=== PATIENT | female | born 1945 | race Caucasian/White ===

== ENCOUNTER 2016-06-24 09:38 | Inpatient (IN) | payer MEDICARE, OTHER ==
[2016-05-26 10:20] VITALS: BMI 26.0
--- NOTE | 2016-05-26 11:07 | PAT Medication Instructions ---
Service Date May 26, 2016. Current Home Medication List Albuterol (Ventolin Hfa), 2 PUFFS INH Q4H PRN for ASTHMA? Ascorbic Acid (Vitamin C), 1 TAB PO BID Calcium Citrate-Vitamin D (Calcium Citrate + D), 1 TAB PO QDL Coenzyme Q10 (Ubidecarenone) (Coq10), 1 TAB PO QAM Esomeprazole Magnesium (Nexium), 40 MG PO DAILY PRN for ACID REFLUX Ezetimibe (Zetia), 10 MG PO QDD Fish Oil (Biggers-3), 1,400 MG PO BID Magnesium Oxide (Magnesium), 250 MG PO BID Metoprolol Succinate (Metoprolol Succinate ER), 1 TAB PO QDD Multivitamin (Multivitamin), 1 TAB PO QDD Resveratrol-Quercetin (Resveratrol Plus), 1 TAB PO QAM Saccharomyces Boulardii (Probiotic), 2 CAP PO QPM Verapamil Sust Rel (Calan Sr Ext Rel), 360 MG PO QAM Medication Instructions For Your Scheduled Surgery - Hold the following medications 10 days prior to surgery: Resveratrol-Quercetin (Resveratrol Plus), 1 TAB PO QAM Fish Oil (Biggers-3), 1,400 MG PO BID Coenzyme Q10 (Ubidecarenone) (Coq10), 1 TAB PO QAM - Hold the following medications the morning of surgery: Multivitamin (Multivitamin), 1 TAB PO QDD Magnesium Oxide (Magnesium), 250 MG PO BID Calcium Citrate-Vitamin D (Calcium Citrate + D), 1 TAB PO QDL Ascorbic Acid (Vitamin C), 1 TAB PO BID - Take the following medications the morning of surgery with a sip of water: Verapamil Sust Rel (Calan Sr Ext Rel), 360 MG PO QAM Metoprolol Succinate (Metoprolol Succinate ER), 1 TAB PO QDD Ezetimibe (Zetia), 10 MG PO QDD Esomeprazole Magnesium (Nexium), 40 MG PO DAILY PRN for ACID REFLUX Albuterol (Ventolin Hfa), 2 PUFFS INH Q4H PRN (bring with you to hospital on day of surgery) - Take the following medications as scheduled the night before surgery: Saccharomyces Boulardii (Probiotic), 2 CAP PO QPM Magnesium Oxide (Magnesium), 250 MG PO BID Ascorbic Acid (Vitamin C), 1 TAB PO BID Albuterol (Ventolin Hfa), 2 PUFFS INH Q4H PRN If you have any questions please call us at [phone] or [phone] ( Veronica) or [phone]
[2016-05-26 11:59] LABS: BASO % 0.3 %; BASO ABS # 0.02 K/uL (0-0.2); COMPLETE YES; EOS % 1.1 %; HEMATOCRIT 43.6 % (37-47); IG% 0.4 %; LYMPH % 20.8 %; LYMPH ABS # 1.55 K/uL (1.2-3.4); MEAN CELL VOLUME 92.4 fL (80-100); MEAN CORPUSCULAR HEMOGLOBIN 31.8 pg (25-34); MEAN CORPUSCULAR HGB CONC 34.4 g/dl (32-36); MEAN PLATELET VOLUME 9.6 fL (7.4-10.4); MONO % 6.7 %; NEUT % 70.7 %; PLATELET COUNT 474 K/uL (130-400); RED BLOOD COUNT 4.72 M/uL (4.2-5.4); WHITE BLOOD COUNT 7.44 K/uL (4.8-10.8)
[2016-05-26 12:04] LABS: URINE APPEARANCE CLEAR (CLEAR); URINE BILIRUBIN NEG (NEG); URINE COLOR YELLOW; URINE NITRITE NEG (NEG); URINE PH 7.5 (4.5-7.5); URINE SPECIFIC GRAVITY 1.005 (1.000-1.030); UROBILINOGEN NEG (NEG)
[2016-05-26 12:09] LABS: PARTIAL THROMBOPLASTIN RATIO 1.1; PROTHROMBIN TIME (PATIENT) 10.7 SECONDS (9.0-12.0)
[2016-05-26 12:10] LABS: MANUAL MICROSCOPIC REQUIRED? NO; REVIEW REQ? NO
--- NOTE | 2016-05-26 12:10 | DIAGNOSTIC IMAGING REPORT ---
CHEST PREADMISSION(PA/LAT) CLINICAL HISTORY: PAT preoperative evaluation COMPARISON STUDY: No previous studies for comparison. FINDINGS: Mild emphysematous change. Thoracic scoliosis. Lungs are clear. Diaphragms smooth. IMPRESSION: No acute process. Mild emphysematous change. Electronically signed by: Lei Park M.D. 05/26/2016 12:08 PM Dictated Date/Time: 05/26/2016 12:08 PM
[2016-05-26 12:17] LABS: ESTIMATED AVERAGE GLUCOSE 114 mg/dl; HA1C FLAG Normal (Normal)
[2016-05-26 12:52] LABS: BUN/CREATININE RATIO 14.2 (10-20); CALCIUM 9.2 mg/dl (8.5-10.1); CREATININE 0.77 mg/dl (0.60-1.20); POTASSIUM 4.2 mmol/L (3.5-5.1)
--- NOTE | 2016-05-26 15:44 | HISTORY & PHYSICAL EXAMINATION ---
DATE OF ADMISSION: 06/24/2016 PROCEDURE: Left knee replacement. HISTORY OF PRESENT ILLNESS: This is a pleasant 71-year-old female who presents for preop evaluation prior to left knee replacement. She states she has had pain in this knee for many years now, which has gradually worsened. It has now gotten to the point where it is affecting her daily activities including walking, standing, going up and down steps. She has tried physical therapy and home exercise program, viscosupplementation, cortisone injection, anti-inflammatories with no relief. She had a previous left knee arthroscopy in 2003. At this point in time, has failed conservative measures and would like to proceed with left knee replacement. PAST MEDICAL HISTORY: 1. Hypertension. 2. High cholesterol. 3. Asthma. 4. Positives MRSA nasal swab after her neck surgery in 2007. 5. GERD. ALLERGIES: NO KNOWN DRUG ALLERGIES. SHE HAS SENSITIVITY TO STATINS WHICH CAUSES MUSCLE PAIN WELL CHLORTHALIDONE CAUSES WEAKNESS. CURRENT MEDICATIONS: 1. Nexium. 2. Zetia 10 mg daily. 3. Verapamil 360 mg daily. 4. Fish oil. 5. Calcium. 6. Multivitamin. 7. Magnesium. 8. Valsartan 80 mg daily. 9. Coenzyme Q10. 10. Vitamin C. 11. Probiotic. 12. Ventolin inhaler. PAST SURGICAL HISTORY: 1. Hysterectomy. 2. Bilateral axillary lipoma removal. 4. Appendectomy. 5. Bladder surgery. FAMILY HISTORY: Noncontributory. SOCIAL HISTORY: She denies a history of smoking or tobacco use. No alcohol consumption. She is retired and lives in a 1-story home with her . REVIEW OF SYSTEMS: Otherwise negative. Please see HPI for pertinent positives. PHYSICAL EXAMINATION: GENERAL: Nacho 71-year-old female in no acute distress, alert and oriented x3. She is 5 feet 4 inches, weighs 157 pounds. VITAL SIGNS: Blood pressure is 162/86, pulse 80, O2 sats 98%. HEENT: Normocephalic, atraumatic. CARDIAC: Regular rate and rhythm. Grade 1 systolic ejection murmur noted. Resting pulse 80 beats per minute. LUNGS: Clear to auscultation without rales or wheeze bilaterally. ABDOMEN: Soft, nontender. Bowel sounds present. EXTREMITIES: Left lower extremity is neurovascularly intact. Calves are soft and nontender. DP pulse +2. Demonstrates good quad tone. Straight leg raise without lag. No erythema or warmth, mild effusion. Positive crepitation with motion, range of motion is 0/5/115. Overall has valgus alignment. IMAGING: Reviewed of the left knee shows findings consistent with degenerative joint disease including complete loss of joint space of the lateral compartment as well as patellofemoral joint with valgus alignment, peripheral osteophytes and subchondral sclerosis. IMPRESSION: 1. Left knee degenerative joint disease. 2. Past medical history as outlined above. PLAN: Further care discussed with patient. At this point in time, has failed conservative measures and would like to proceed with a left knee replacement. We will place on aspirin 81 mg p.o. b.i.d. for a month postop. Otherwise, she has no other questions or concerns. JO ANN
[2016-06-24] VITALS (7 sets, daily range): BP systolic 121–164; BP diastolic 60–74; PULSE 54–71; TEMP 36.3–37.1; O2SAT 96–100; Ht 162.6 cm; Wt 69.1 kg
[~2016-06-24] VITALS: Ht 162.6 cm; Wt 69.1 kg
[2016-06-24] MEDS: TRANEXAMIC ACID INJ 1,000 MG in SODIUM CHLORIDE 0.9% 100ML 100 ML IV SCH ×2 (06:00→06:30)
--- NOTE | 2016-06-24 09:21 | History & Physical Bridge Note ---
H&P Re-Evaluation Bridge Note: I have examined the patient, reviewed the History & Physical and in the interval since the performance of the History & Physical I have noted the following changes of clinical significance: No changes noted
[~2016-06-24 09:38] MED LIST: ACETAMINOPHEN 500 MG TAB PO SCH; ASCA500 PO; BUPIVACAINE 0.25% 30 ML VIAL ONE; BUPIVACAINE 0.5 % 5 MG/1 ML PF 10ML VIAL ONE; CALC-279 PO; CEFAZOLIN 1000MG/55 ML D5W 55 ML IV SCH; COEN1CAP7 PO; CeleBREX 200 MG CAP PO SCH; DEXAMETHASONE 4 MG TAB PO SCH; EZET10TA63 PO; FAMOTIDINE 20 MG TAB PO SCH; GABAPENTIN 300 MG CAP PO SCH; LACTATED RINGER'S 1000ML 1,000 ML IV SCH; LACTATED RINGER'S 1000ML IV SCH; LACTATED RINGER'S 500 ML IV SCH; MAGN1CAP4 PO; METOCLOPRAMIDE HCL 10 MG TAB PO SCH; MULT-506 PO; NXM/40 PO; OMEG10007 PO; PRVHFAIN INH; RESV1TAB PO; ROPIVACAINE 5MG/ML 30 ML 150 MG, BUPIVACAINE/EPINEPHR 0.5% MPF 30 ML, KETOROLAC TROMETH... INFIL SCH; SACC250C11 PO; TPRSR/25 PO; VERA240T20 PO
[2016-06-24] MEDS ORDERED: PROPOFOL IV EMULSION 10 MG/ML 20 ML VIAL IV ONE (10:50)
[2016-06-24] MEDS ORDERED: LIDOCAINE HCL 2% 2 ML VIAL (20MG/ML) ONE (10:50)
[2016-06-24] MEDS ORDERED: ONDANSETRON INJ 2 MG/ML 2 ML VIAL ONE (10:50)
[2016-06-24] MEDS ORDERED: DEXAMETHASONE SOD INJ 4 MG/ML VIAL ONE (10:50)
[2016-06-24] MEDS ORDERED: FENTANYL CITRATE INJ 50 MCG/1 ML 2 ML VIAL ONE (10:51)
[2016-06-24] MEDS ORDERED: MIDAZOLAM HCL 1 MG/ML 2ML VIAL ONE ×2 (10:51)
[2016-06-24] MEDS ORDERED: LACTATED RINGER'S 1000ML 1,000 ML IV PRN (11:18)
[2016-06-24] MEDS ORDERED: ONDANSETRON INJ 2 MG/ML 2 ML VIAL IV PRN ×2 (11:30→14:45)
[2016-06-24] MEDS ORDERED: FENTANYL CITRATE INJ 50 MCG/1 ML 2 ML VIAL IV PRN (11:30)
[2016-06-24] MEDS ORDERED: ORTHO JOINT ANESTHETIC ONE (11:34)
[2016-06-24] MEDS ORDERED: POVIDONE-IODINE OP SOLN 30 ML BTL ONE (11:34)
[2016-06-24] MEDS ORDERED: BACITRACIN 50000 UNIT VIAL ONE (11:35)
--- NOTE | 2016-06-24 14:05 | [facility] Post Operative Brief Note ---
Immediate Operative Summary Operative Date Jun 24, 2016. Pre-Operative Diagnosis Left knee degenerative joint disease Post-Operative Diagnosis Left knee degenerative joint disease Procedure(s) Performed Left Total Knee Arthroplasty Surgeon Tod Investigations Director Surgeon(s) Lei Brooks PA-C Estimated Blood Loss 5cc Findings severe djd with valgus knee Specimens A: left knee bone and tissue Complication(s) None Disposition Recovery Room / PACU
--- NOTE | 2016-06-24 14:15 | OPERATIVE REPORT ---
DATE OF OPERATION: 06/24/2016 PREOPERATIVE DIAGNOSIS: Severe endstage degenerative joint disease with valgus alignment left knee. POSTOPERATIVE DIAGNOSIS: Same. PROCEDURE: Left total knee arthroplasty utilizing Long \T\ Nephew Journey II patient matched total knee arthroplasty size 6 femur, 4 tibia, 10 poly constrained, 32 patella. SURGEON: Dr. Baron. LIQUIFIED NATURAL GAS TECHNICIAN: Lei Brooks PA-C who was necessary for prepping, draping, retraction, wound closure of deep fascial, subcutaneous and skin and was necessary for the case. ESTIMATED BLOOD LOSS: 5 mL. COMPLICATIONS: None. TOURNIQUET TIME: 45 minutes. HISTORY OF PRESENT ILLNESS: The patient presents as a very pleasant 71-year-old white female with a 15 degree valgus knee with severe endstage DJD about her left knee. She presents for left total knee arthroplasty after failing attempts at conservative management including physical therapy, anti-inflammatories, relative rest, activity modification. She presents for total knee arthroplasty. OPERATION AND FINDINGS: PROCEDURE: The patient was properly prepped and draped in supine position for total knee arthroplasty after identifying the appropriate surgical site. An anterior midline incision was made through the subcutaneous tissues down to the region of the extensor mechanism. A medial parapatellar incision was subsequently made. Meticulous hemostasis was obtained and performed at all times. The patella having been subluxed lateralward, medial and lateral meniscal remnants were excised. The patellar cut was then initially made and was sized to the appropriate size. After subluxing the tibia forward the appropriate meniscal fragments having been removed the distal femur was then cut first utilizing a Long \T\ Nephew block. The distal femoral cuts and chamfer cuts were all made under direct visualization and the proximal tibial osteotomy cut was also made utilizing Long \T\ Nephew blocks and checked with an extramedullary guide. The appropriate trial components on the femur and tibia were placed. Appropriate trial spacers were used to check flexion and extension gaps. With flexion and extension gaps being equal, the components were then subsequently after thorough irrigation and debridement lavage components were then subsequently cemented in the following order: femur, tibia and patella. Exparel was used for intraoperative anesthesia, the medial parapatellar incision was closed utilizing #1 Vicryl, subQ was closed with 2-0 Vicryl, skin was closed with skin clips. A sterile compression dressing was placed. The patient tolerated the procedure well. The patient was taken to recovery room in stable condition. Due to the complex nature of the procedure, the entire surgery was performed with the operational assistance of Lei Brooks PA-C. The certified pharmacist assistant, under direct supervision, was involved in the actual performance of all aspects of the surgical procedure including hemostasis, tissue retraction and incision, instrument management, patient positioning, and wound closure. I attest to the content of the Intraoperative Record and any orders documented therein. Any exceptio ns are noted below.
[2016-06-24] MEDS ORDERED: MAGNESIUM HYDROXIDE SUSP 30 ML UDC PO PRN (14:45)
[2016-06-24] MEDS ORDERED: SOD PHOSPHATE/SOD BIPHOSPHATE ENEMA 132 ML BTL PR PRN (14:45)
[2016-06-24] MEDS ORDERED: ALBUTEROL HFA 8 GM INHALER INH PRN (14:45)
[2016-06-24] MEDS ORDERED: OXYCODONE HCL IR 5 MG TAB (IMMEDIATE RELEASE) PO PRN (14:45)
[2016-06-24] MEDS ORDERED: ALUMINUM/MAGNESIUM/SIMETH (MAALOX MAX) 30 ML UDC PO PRN (14:45)
[2016-06-24] MEDS ORDERED: BISACODYL 10 MG SUPP PR PRN (14:45)
[2016-06-24] MEDS ORDERED: ZOLPIDEM TARTRATE 5 MG TAB PO PRN (14:45)
[2016-06-24] MEDS ORDERED: MoRPHine SULFATE 2 MG/ML CARP IV PRN (14:45)
[2016-06-24] MEDS ORDERED: KETOROLAC TROMETHAMINE 15 MG/ML VIAL IV. PRN (14:45)
--- NOTE | 2016-06-24 15:17 | DIAGNOSTIC IMAGING REPORT ---
LEFT KNEE 2 VIEWS History: Left total knee arthroplasty. Degenerative arthritis. Postop. FINDINGS: The patient is status post a left total knee arthroplasty. The hardware is intact. No fracture or dislocation. Surgical drains are in place. IMPRESSION: Left total knee arthroplasty. No evidence for hardware complication. Electronically signed by: Fredy Parker M.D. 06/24/2016 3:15 PM Dictated Date/Time: 06/24/2016 3:15 PM
--- NOTE | 2016-06-24 15:17 | Anesthesiology Progress Note ---
Anesthesia Post Op Note Date & Time Jun 24, 2016 at 15:16 Vital Signs Pain Intensity: 0 Vital Signs Past 12 Hours Date Time Temp Pulse Resp B/P Pulse Ox O2 Delivery O2 Flow Rate FiO2 06/24/16 15:00 65 17 133/58 98 Nasal Cannula 2 06/24/16 14:50 82 16 153/70 98 Nasal Cannula 2 06/24/16 14:41 36.5 75 16 146/62 100 Mask 10 06/24/16 10:15 36.6 71 18 164/74 97 Room Air Notes Mental Status: alert / awake / arousable, participated in evaluation Pt Amnestic to Procedure: No (recall as expected) Nausea / Vomiting: adequately controlled Pain: adequately controlled Airway Patency, RR, SpO2: stable & adequate BP & HR: stable & adequate Hydration State: stable & adequate Neuraxial Anesthesia: was administered, sensory block is resolving Anesthetic Complications: no major complications apparent Pt doing well.
[2016-06-24] MEDS ORDERED: MoRPHine SULFATE 4 MG/ML 1 ML CARP\\VIAL IV PRN (15:30)
[2016-06-24] MEDS ORDERED: MoRPHine SULFATE 10 MG/ML CARP/VIAL IV PRN (15:30)
[2016-06-24] MEDS: D5W AND 1/2NSS + 20MEQ KCL 1,000 ML IV SCH (16:34)
[2016-06-24] MEDS: METOPROLOL SUCC 25MG EXT REL TAB PO SCH (18:30)
[2016-06-24] MEDS: EZETIMIBE 10MG TAB PO SCH (18:38)
[2016-06-24] MEDS: CEFAZOLIN IV 1,000 MG in DEXTROSE 5% 50ML 50 ML IV SCH (20:10)
[2016-06-24] MEDS: OXYCODONE HCL 10 MG TABCR (OXYCONTIN) PO SCH (21:00)
[2016-06-24] MEDS: ASPIRIN 81 MG ECTAB PO SCH (21:35)
[2016-06-24] MEDS: DOCUSATE SODIUM 100 MG CAP PO SCH (21:36)
[2016-06-24] MEDS: ASCORBIC ACID 500 MG TAB PO SCH (21:39)
[2016-06-24] MEDS: SENNA 8.6 MG TAB PO SCH (21:39)
[2016-06-24] MEDS: SACCHAROMYCES BOUL (FLORASTOR) 250 MG CAP PO SCH (21:39)
[2016-06-24] MEDS: MAGNESIUM OXIDE 400 MG TAB PO SCH (21:40)
[2016-06-24] MEDS: ACETAMINOPHEN 500 MG TAB PO SCH (21:43)
[2016-06-24] MEDS: CeleBREX 200 MG CAP PO SCH (22:21)
[2016-06-25] MEDS: D5W AND 1/2NSS + 20MEQ KCL 1,000 ML IV SCH ×2 (02:27→13:08)
[2016-06-25 03:56] VITALS: BP 136/64; PULSE 52; TEMP 36.5; O2SAT 98
[2016-06-25] MEDS: CEFAZOLIN IV 1,000 MG in DEXTROSE 5% 50ML 50 ML IV SCH (03:59)
[2016-06-25] MEDS: ACETAMINOPHEN 500 MG TAB PO SCH ×3 (06:14→21:42)
[2016-06-25 06:23] LABS: HEMATOCRIT 37.5 % (37-47); MEAN CELL VOLUME 91.9 fL (80-100); MEAN CORPUSCULAR HEMOGLOBIN 30.6 pg (25-34); MEAN CORPUSCULAR HGB CONC 33.3 g/dl (32-36); PLATELET COUNT 388 K/uL (130-400); RED BLOOD COUNT 4.08 M/uL (4.2-5.4); WHITE BLOOD COUNT 19.46 K/uL (4.8-10.8)
[2016-06-25 06:38] LABS: PROTHROMBIN TIME (PATIENT) 10.8 SECONDS (9.0-12.0)
[2016-06-25 07:20] VITALS: BP 146/61; PULSE 58; TEMP 36.6; O2SAT 97
[2016-06-25 07:31] LABS: BUN/CREATININE RATIO 13.4 (10-20); CALCIUM 8.3 mg/dl (8.5-10.1); CREATININE 0.77 mg/dl (0.60-1.20)
[2016-06-25] MEDS: PANTOprazole SOD 40 MG TAB PO SCH (07:37)
[2016-06-25] MEDS: VERAPAMIL HCL 240 MG TABCR PO SCH (07:37)
[2016-06-25] MEDS: OXYCODONE HCL 10 MG TABCR (OXYCONTIN) PO SCH ×2 (08:42→21:00)
[2016-06-25] MEDS: CeleBREX 200 MG CAP PO SCH ×2 (08:47→21:40)
[2016-06-25] MEDS: ASPIRIN 81 MG ECTAB PO SCH ×2 (08:47→21:38)
[2016-06-25] MEDS: DOCUSATE SODIUM 100 MG CAP PO SCH ×2 (08:47→21:00)
[2016-06-25] MEDS: MULTIVITAMIN TAB PO SCH (08:48)
[2016-06-25] MEDS: MAGNESIUM OXIDE 400 MG TAB PO SCH ×2 (08:48→21:40)
[2016-06-25] MEDS: ASCORBIC ACID 500 MG TAB PO SCH ×2 (08:48→21:41)
[2016-06-25] MEDS ORDERED: QUERCETIN PO SCH (09:00)
[2016-06-25] MEDS ORDERED: RESVERATROL PO SCH (09:00)
--- NOTE | 2016-06-25 10:36 | Orthopedic Progress Note ---
Orthopedic Progress Note Date of Service Jun 25, 2016. Subjective Post OP Day: 1 Reports: feeling well, Denies: SOB, calf pain, chest pain, light headedness, nausea / vomiting Additional Notes: Knee feels tight this AM with some mild pain in the popliteal fossa area. No other complaints. Objective calves soft nontender, N/V intact, dressing C/D/I, A&O x3, toes mobile Date Time Temp Pulse Resp B/P Pulse Ox O2 Delivery O2 Flow Rate FiO2 06/25/16 07:35 Room Air 06/25/16 07:20 36.6 58 17 146/61 97 Room Air 06/25/16 03:56 36.5 52 16 136/64 98 Room Air 06/25/16 00:08 Room Air 06/24/16 23:16 36.6 56 16 142/65 99 Room Air 06/24/16 18:49 36.5 58 16 121/60 100 Nasal Cannula 2.0 06/24/16 17:42 37.1 60 16 135/67 100 Nasal Cannula 2.0 06/24/16 16:42 36.3 54 16 126/67 100 Nasal Cannula 2.0 06/24/16 16:10 36.4 57 16 137/68 100 Nasal Cannula 2.0 06/24/16 15:40 96 Nasal Cannula 2.0 06/24/16 15:40 Nasal Cannula 2.0 06/24/16 15:40 36.3 56 16 124/66 96 Nasal Cannula 2.0 06/24/16 15:20 58 16 121/48 98 Nasal Cannula 2 06/24/16 15:10 36.3 60 14 120/58 98 Nasal Cannula 2 06/24/16 15:00 65 17 133/58 98 Nasal Cannula 2 06/24/16 14:50 82 16 153/70 98 Nasal Cannula 2 06/24/16 14:41 36.5 75 16 146/62 100 Mask 10 Laboratory Results 24 Hours: Test 06/25/16 05:58 Hematocrit 37.5 % Hemoglobin 12.5 g/dL Prothromb Time International Ratio 1.0 Prothrombin Time 10.8 SECONDS Assessment & Plan Assessment: POD 1 s/p Left TKA Plan: PT/OT Planning for Home with OPPT Inhouse Planning Pain Management: Celebrex, Toradol, Oxycontin, Morphine, PO Tylenol, Oxy IR DVT Prophylaxis: TEDs, SCDs, ASA Discharge Planning Discharge Planning: home with oppt Pain Management: Celebrex, Oxycontin, Oxy IR DVT Prophylaxis: TEDs, ASA Therapy: Physical Therapy
[2016-06-25 11:22] VITALS: BP 122/69; PULSE 67; TEMP 36.5; O2SAT 99
[2016-06-25] MEDS: CALCIUM 600MG + VIT D 400 IU TAB PO SCH (13:08)
--- NOTE | 2016-06-25 14:28 | Discharge Instructions ---
Discharge Instructions Date of Service Jun 25, 2016. Admission Reason for Admission: Left Knee Osteoarthritis Discharge Discharge Diagnosis / Problem: left total knee replacement Discharge Goals Goal(s): Decrease discomfort, Improve function, Increase independence Activity Recommendations Activity Limitations: as noted below Weightbearing Status: Left weightbearing (as tolerated) . Instructions / Follow-Up Instructions / Follow-Up ACTIVITY RECOMMENDATIONS: SELF CARE INSTRUCTIONS AFTER TOTAL KNEE REPLACEMENT A. You may need to continue a physical therapy program after discharge from the hospital. There are several options available to you. Your doctor will assist you in selecting the best one for you. 1. An out-patient facility 2 to 3 times a week for therapy or home therapy. 2. Continue working on all exercises taught to you in the hospital. Your goals should be to increase bending of your knee to 90 degrees and beyond and to fully straighten your knee. B. You may progress at your own pace from walking with a walker or crutches to a cane; then to no assistive devices. C. Make walking a part of your daily routine. Be up as much as comfortable with rest periods throughout the day. Rest with leg elevation is very important. Use the ice wrap frequently for the first 3-4 weeks. D. There are no restrictions on activities. You may ride in a car, shop, participate in lump receiver and all social activities. E. Wear the long elastic stockings (ANTON hose) 20 hours a day for 2 weeks after surgery. They can be removed several times a day for laundering and for a bath. F. You may shower, no tub baths until cleared by your doctor. SPECIAL CARE INSTRUCTIONS: VERY IMPORTANT TO READ AND REVIEW A. There are a few signs you need to watch for after you are home. Call [facility] if you notice any of the followin. Increased severe knee pain. Some pain is expected especially when you exercise. 2. Increased swelling in your leg or knee; pain or swelling of the calf muscle in either lower leg. 3. Any fluid drainage from the incision. 4. Shortness of breath or chest pain. B. Please call [facility] at if you have any concerns or questions about your operation or recovery. The doctor or his nurse will return your call promptly. C. You must take antibiotics before dental work, bladder, bowel or other surgery. Your doctor will provide you with a permanent care to carry describing this precaution. IMPORTANT: * REMEMBER TO TAKE ASPIRIN, 81 MG, TWICE DAILY FOR 4 WEEKS UNLESS OTHERWISE DIRECTED. THIS IS YOUR BLOOD THINNER. * HIGH RISK PATIENTS MAY BE PRESCRIBED A STRONGER BLOOD THINNER. THIS WILL BE PROVIDED AT DISCHARGE. * CALL IF INCREASED PAIN, REDNESS, DRAINAGE OR FEVER GREATER THAT 101. * WEAR ANTON HOSE 20 HOURS PER DAY FOR 2 WEEKS. * YOU MAY HAVE A LARGE BAND-AID LIKE DRESSING (SILVERON). THIS WILL REMAIN ON YOUR INCISION FOR 7 DAYS, THEN CAN BE REMOVED. IF INCISION IS LEAKING THROUGH DRESSING, CALL THE OFFICE . DERMABOND Prineo- This is a mesh tape dressing that is covered with glue. It should remain in place until the incision is properly healed, usually 10-14 days. This dressing is designed to naturally slough off. You may trim the excess mesh tape as it peels off. Incision may be briefly wet in a shower. Dry immediately by blotting with a clean, dry towel. Do not bath or swim until instructed by your doctor. Do not scratch, rub, or pick at the dressing. Do not apply any topical ointments or lotions until dressing is completely removed and/or instructed by your doctor. There may be a small piece of suture material at one end of your incision. Do not pull or trim this. If it is bothersome or catching on clothing, you may cover it with a band-aid. FOLLOW UP VISIT: If appointment is not already scheduled: Please call [facility] to make a follow-up appointment for 2 weeks after your surgery at . Current Hospital Diet Patient's current hospital diet: Regular Diet Discharge Diet Recommended Diet: Regular Diet Procedures Procedures Performed: Left Total Knee Arthroplasty Pending Studies Studies pending at discharge: no Laboratory Results Hemoglobin A1c Test 05/26/16 11:16 Range/Units Estimated Average Glucose 114 mg/dl Hemoglobin A1c 5.6 4.5-5.6 % Medical Emergencies . Who to Call and When: Medical Emergencies: If at any time you feel your situation is an emergency, please call 911 immediately. . Non-Emergent Contact Non-Emergency issues call your: Primary Care Provider, Surgeon . "Provider Documentation" section prepared by Lei Brooks. . VTE Core Measure Inpt VTE Proph given/why not?: Other Anticoagulation (ASA 81mg po bid x 1 month ), TDamienESukhjinder Stockings, SCD's [place] Drug Monitoring Program Search Results: patient reviewed within database, no issues identified
[2016-06-25 15:06] VITALS: BP 123/64; PULSE 59; TEMP 36.6; O2SAT 99
[2016-06-25] MEDS: METOPROLOL SUCC 25MG EXT REL TAB PO SCH (17:45)
[2016-06-25] MEDS: EZETIMIBE 10MG TAB PO SCH (17:51)
[2016-06-25] MEDS: TRAMADOL HCL 50 MG TAB PO PRN ×2 (17:56→23:26)
[2016-06-25] MEDS: SENNA 8.6 MG TAB PO SCH (21:00)
[2016-06-25] MEDS: SACCHAROMYCES BOUL (FLORASTOR) 250 MG CAP PO SCH (21:40)
[2016-06-25 23:45] VITALS: BP 135/68; PULSE 67; TEMP 36.6; O2SAT 98
[2016-06-26] MEDS: TRAMADOL HCL 50 MG TAB PO PRN ×3 (03:58→12:37)
[2016-06-26 06:13] VITALS: BP 128/57; PULSE 71; TEMP 36.6; O2SAT 94
[2016-06-26] MEDS: ACETAMINOPHEN 500 MG TAB PO SCH ×2 (06:22→13:38)
[2016-06-26] MEDS: CeleBREX 200 MG CAP PO SCH (07:06)
[2016-06-26] MEDS: CALCIUM 600MG + VIT D 400 IU TAB PO SCH (07:06)
[2016-06-26] MEDS: VERAPAMIL HCL 240 MG TABCR PO SCH (07:07)
[2016-06-26] MEDS: MULTIVITAMIN TAB PO SCH (07:07)
[2016-06-26] MEDS: PANTOprazole SOD 40 MG TAB PO SCH (07:08)
[2016-06-26] MEDS: ASCORBIC ACID 500 MG TAB PO SCH (07:08)
[2016-06-26] MEDS: OXYCODONE HCL 10 MG TABCR (OXYCONTIN) PO SCH (07:08)
[2016-06-26] MEDS: MAGNESIUM OXIDE 400 MG TAB PO SCH (07:08)
[2016-06-26] MEDS: ASPIRIN 81 MG ECTAB PO SCH (07:09)
[2016-06-26] MEDS: DOCUSATE SODIUM 100 MG CAP PO SCH (07:10)
--- NOTE | 2016-06-26 11:30 | Orthopedic Progress Note ---
Orthopedic Progress Note Date of Service Jun 26, 2016. Subjective Post OP Day: 2 Reports: feeling well Objective calves soft nontender, dressing C/D/I (Drain site still draining, compression dressing in place), toes mobile Date Time Temp Pulse Resp B/P Pulse Ox O2 Delivery O2 Flow Rate FiO2 06/26/16 07:10 Room Air 06/26/16 06:13 36.6 71 16 128/57 94 Room Air 06/25/16 23:45 36.6 67 16 135/68 98 Room Air 06/25/16 23:30 Room Air 06/25/16 15:30 Room Air 06/25/16 15:06 36.6 59 18 123/64 99 Room Air Assessment & Plan Assessment: POD 2 s/p Left TKA Plan: 1. Med management 2. DVT prophylaxis- ASA, TEDs, SCDs 3. PT/OT 4. D/C planning- home w/ OPPT Inhouse Planning Pain Management: Celebrex, Toradol, Oxycontin, Morphine, PO Tylenol, Oxy IR DVT Prophylaxis: TEDs, SCDs, ASA Discharge Planning Discharge Planning: home with oppt Pain Management: Celebrex, Oxycontin, Oxy IR DVT Prophylaxis: TEDs, ASA Therapy: Physical Therapy
[2016-06-26] MEDS ORDERED: ASPEC81 PO (11:34)
[2016-06-26] MEDS ORDERED: ACET-1138 PO (11:34)
[2016-06-26] MEDS ORDERED: RXC5 PO (11:34)
[2016-06-26] MEDS ORDERED: CLB200 PO (11:34)
[2016-06-26] MEDS ORDERED: OXYSR10 PO (11:34)
[2016-06-26 13:04] VITALS: BP 111/61
[2016-06-26 14:32] VITALS: BP 111/61; PULSE 71; TEMP 36.6; O2SAT 94
--- NOTE | 2016-06-26 19:03 | Discharge Summary ---
Orthopedic Discharge Summary Admission Date/Reason Jun 24, 2016 at 10:30 Left Knee Osteoarthritis. Discharge Date/Disposition Jun 26, 2016 Home Diagnosis Principal Diagnosis: Left Knee Osteoarthritis Secondary Diagnoses/Problems: 1. Hypertension. 2. High cholesterol. 3. Asthma. 4. Positives MRSA nasal swab after her neck surgery in 2007. 5. GERD. Procedure(s) Performed PROCEDURE: Left total knee arthroplasty utilizing Long \T\ Nephdesmond Faye II patient matched total knee arthroplasty size 6 femur, 4 tibia, 10 poly constrained, 32 patella. Consultations NONE Medication Reconciliation New Medications: Acetaminophen (Tylenol Extra Strength) 500 Mg Tab 1000 MG PO Q8 for 30 Days, TAB Aspirin (Aspirin EC Low Dose) 81 Mg Ectab 81 MG PO BID for 30 Days Celecoxib (Celebrex) 200 Mg Cap 200 MG PO BID, #60 CAP Oxycodone HCl (Oxycontin) 10 Mg Tabcr 10 MG PO Q12, #20 Oxycodone HCl (Oxycodone HCl) 5 Mg Tab 5-10 MG PO Q4-6 PRN for Pain, #60 TAB Continued Medications: Albuterol (Ventolin Hfa) 60 Puffs/5400 Mcg Aers 2 PUFFS INH Q4H PRN for ASTHMA? Ascorbic Acid (Vitamin C) 500 Mg Tab 1 TAB PO BID Calcium Citrate-Vitamin D (Calcium Citrate + D) 1 Tab Tab 1 TAB PO QDL Coenzyme Q10 (Ubidecarenone) (Coq10) 200 Mg Cap 1 TAB PO QAM Esomeprazole Magnesium (Nexium) 40 Mg Capcr 40 MG PO DAILY PRN for ACID REFLUX , CAP Ezetimibe (Zetia) 10 Mg Tab 10 MG PO QDD, TAB Fish Oil (Temple-3) 1 Ea Cap 1400 MG PO BID, CAP Magnesium Oxide (Magnesium) 500 Mg Cap 250 MG PO BID Metoprolol Succinate (Metoprolol Succinate ER) 25 Mg Tabcr 1 TAB PO QDD Multivitamin (Multivitamin) Tab 1 TAB PO QDD, TAB Resveratrol-Quercetin (Resveratrol Plus) 1 Tab Tab 1 TAB PO QAM DOSE ON PT MED LIST IS 100 MG Saccharomyces Boulardii (Probiotic) 250 Mg Cap 2 CAP PO QPM ULTRA PRIYA PROBIOTIC 30 BILLION CAP - PER PT MED LIST - TAKES 2 CAP FOR A TOTAL OF 60 BILLION PER PT Verapamil Sust Rel (Calan Sr Ext Rel) 240 Mg Tabcr 360 MG PO QAM, TAB Admission Physical Exam As per Admitting History & Physical. Hospital Course Patient was a same day admission after undergoing a successful left TKA. she tolerated the procedure well. Post-operatively, her activity was progressed and well tolerated. Please refer to daily progress notes and PT notes for complete details. After exam on 06/26/16, patient felt to be stable for discharge home with OPPT. Patient will f/u in the office in 2 weeks for further evaluation including x-rays and incision check, sooner if having any issues or concerns. Below are pertinent labs/studies during their hospital stay: Last Resulted CBC 06/25/16 05:58 Last Resulted BMP 06/25/16 05:58 Last Vital Signs Documentation Date Time Temp Pulse Resp B/P Pulse Ox O2 Delivery O2 Flow Rate FiO2 06/26/16 14:32 36.6 71 16 94 Room Air 06/26/16 13:04 111/61 06/24/16 18:49 2.0 Discharge Instructions ACTIVITY RECOMMENDATIONS: SELF CARE INSTRUCTIONS AFTER TOTAL KNEE REPLACEMENT A. You may need to continue a physical therapy program after discharge from the hospital. There are several options available to you. Your doctor will assist you in selecting the best one for you. 1. An out-patient facility 2 to 3 times a week for therapy or home therapy. 2. Continue working on all exercises taught to you in the hospital. Your goals should be to increase bending of your knee to 90 degrees and beyond and to fully straighten your knee. B. You may progress at your own pace from walking with a walker or crutches to a cane; then to no assistive devices. C. Make walking a part of your daily routine. Be up as much as comfortable with rest periods throughout the day. Rest with leg elevation is very important. Use the ice wrap frequently for the first 3-4 weeks. D. There are no restrictions on activities. You may ride in a car, shop, participate in dining room busser and all social activities. E. Wear the long elastic stockings (ANTON hose) 20 hours a day for 2 weeks after surgery. They can be removed several times a day for laundering and for a bath. F. You may shower, no tub baths until cleared by your doctor. SPECIAL CARE INSTRUCTIONS: VERY IMPORTANT TO READ AND REVIEW A. There are a few signs you need to watch for after you are home. Call [facility] if you notice any of the followin. Increased severe knee pain. Some pain is expected especially when you exercise. 2. Increased swelling in your leg or knee; pain or swelling of the calf muscle in either lower leg. 3. Any fluid drainage from the incision. 4. Shortness of breath or chest pain. B. Please call [facility] at if you have any concerns or questions about your operation or recovery. The doctor or his nurse will return your call promptly. C. You must take antibiotics before dental work, bladder, bowel or other surgery. Your doctor will provide you with a permanent care to carry describing this precaution. IMPORTANT: * REMEMBER TO TAKE ASPIRIN, 81 MG, TWICE DAILY FOR 4 WEEKS UNLESS OTHERWISE DIRECTED. THIS IS YOUR BLOOD THINNER. * HIGH RISK PATIENTS MAY BE PRESCRIBED A STRONGER BLOOD THINNER. THIS WILL BE PROVIDED AT DISCHARGE. * CALL IF INCREASED PAIN, REDNESS, DRAINAGE OR FEVER GREATER THAT 101. * WEAR ANTON HOSE 20 HOURS PER DAY FOR 2 WEEKS. * DERMABOND Prineo- This is a mesh tape dressing that is covered with glue. It should remain in place until the incision is properly healed, usually 10-14 days. This dressing is designed to naturally slough off. You may trim the excess mesh tape as it peels off. Incision may be briefly wet in a shower. Dry immediately by blotting with a clean, dry towel. Do not bath or swim until instructed by your doctor. Do not scratch, rub, or pick at the dressing. Do not apply any topical ointments or lotions until dressing is completely removed and/or instructed by your doctor. There may be a small piece of suture material at one end of your incision. Do not pull or trim this. If it is bothersome or catching on clothing, you may cover it with a band-aid. FOLLOW UP VISIT: If appointment is not already scheduled: Please call [facility] to make a follow-up appointment for 2 weeks after your surgery at .
== END 2016-06-26 17:10 | disposition home or self-care (01) | DRG 470 ==
LOC: ENRESERVDT → ENRESERVTM → C.ACU 09:38 → C.3E 10:30
PROVIDERS: ADMIT Orthopaedic Surgery; ATTEND Orthopaedic Surgery
PROC: 0SRD0J9 Replacement of Left Knee Joint with Synthetic Substitute, Cemented, Open Approach (ICD-10-PCS; principal; 2016-06-24 12:30)
DX: M17.12 Unilateral primary osteoarthritis, left knee (principal); J45.909 Unspecified asthma, uncomplicated; E78.00 Pure hypercholesterolemia, unspecified; K21.9 Gastro-esophageal reflux disease without esophagitis; I10 Essential (primary) hypertension; Z86.14 Personal history of Methicillin resistant Staphylococcus aureus infection; Z79.899 Other long term (current) drug therapy